=== PATIENT | male | born 2005 | race American Indian/Alaskan Native ===

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

== ENCOUNTER 2024-07-16 14:50 | Emergency (ER) | payer BC, MEDICAID ==
[2024-07-16 15:02] VITALS: BP 171/94; PULSE 96
== END 2024-07-16 16:16 | disposition home or self-care (01) ==
LOC: DL.ED 14:50
DX: S42.022A Displaced fracture of shaft of left clavicle, initial encounter for closed fracture (principal); I10 Essential (primary) hypertension; V86.56XA Driver of dirt bike or motor/cross bike injured in nontraffic accident, initial encounter; Y93.55 Activity, bike riding
CPT/HCPCS: 71045; 73000-LT; 99283